=== PATIENT | female | born 1960 | race African-American/Black ===

== ENCOUNTER 2017-06-18 11:44 | Emergency (ER) | payer SELFPAY ==
[~2017-06-18] VITALS: Ht 160 cm; Wt 160.0 kg
[2017-06-18 14:45] VITALS: BP 141/88
== END 2017-06-18 15:09 | disposition home or self-care (01) ==
LOC: ER 11:44
DX: H57.9 Unspecified disorder of eye and adnexa (principal); E11.9 Type 2 diabetes mellitus without complications; I10 Essential (primary) hypertension; E66.9 Obesity, unspecified
CPT/HCPCS: 99281; Z7610